=== PATIENT | female | born 1985 | race Caucasian/White ===

== ENCOUNTER 2021-05-01 23:15 | Inpatient (IN) | payer MEDICAID ==
[~2021-05-01] VITALS: Ht 147.3 cm; Wt 69.8 kg
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
[2021-05-02] MEDS ORDERED: magnesium hydroxide 30ml (MOM) UD suspension PO PRN (01:55)
[2021-05-02] MEDS ORDERED: loperamide 2mg capsule PO PRN (01:55)
[2021-05-02] MEDS ORDERED: mag hydrox/Alum hydrox/simeth 30ml oral suspension PO PRN (01:55)
[2021-05-02] MEDS ORDERED: acetaminophen 325mg tablet PO PRN (01:55)
[2021-05-02] MEDS ORDERED: ATOR80TA PO (02:04)
[2021-05-02] MEDS ORDERED: NORE-111 PO (02:04)
[2021-05-02] MEDS ORDERED: INSU100V40 (02:04)
[2021-05-02] MEDS ORDERED: LORA10TA7 PO (02:04)
[2021-05-02] MEDS ORDERED: FERR325T28 PO (02:04)
[2021-05-02] MEDS ORDERED: [UNRECOGNIZED DRUG - CODE] PO (02:04)
[2021-05-02 02:44] VITALS: BP 141/96
[2021-05-02] MEDS ORDERED: LORazepam 1 MG tablet PO ONE (02:50)
[2021-05-02] MEDS ORDERED: [UNRECOGNIZED DRUG - REMARK] SQ PRN (04:10)
[2021-05-02] MEDS: LORazepam 1 MG tablet PO SCH ×3 (07:23→20:08)
[2021-05-02 08:00] VITALS: BP 134/100
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
[2021-05-02] MEDS: loratadine 10mg tablet PO SCH (09:05)
[2021-05-02] MEDS: ferrous sulfate 325mg tablet PO SCH (09:05)
[2021-05-02] MEDS: atorvastatin 20mg tablet PO SCH (09:06)
[2021-05-02] MEDS: ondansetron 4mg rapidly disintigrating tab PO PRN ×2 (09:06→19:08)
[2021-05-02] MEDS: NABUMETONE 750 MG PO SCH ×2 (09:06→20:08)
[2021-05-02 10:11] LABS: BASOPHILS # (AUTO) 0.2 X10'3 (0-0.2); BASOPHILS % (AUTO) 1.4 % (0-1); EOSINOPHILS # (AUTO) 0.1 X10'3 (0-0.9); EOSINOPHILS % (AUTO) 1.2 % (0-6); HEMATOCRIT 43.8 % (35.0-45.0); HEMOGLOBIN 14.7 g/dl (12.0-16.0); LYMPHOCYTES # (AUTO) 2.5 X10'3 (1.1-4.8); LYMPHOCYTES % (AUTO) 24.1 % (21-51); MEAN CORPUSCULAR HEMOGLOBIN 29.4 PG (27.0-31.0); MEAN CORPUSCULAR HGB CONC 33.6 g/dL (33.0-36.5); MEAN CORPUSCULAR VOLUME 87.4 FL (78-98); MONOCYTES % (AUTO) 9.4 % (2-12); NEUTROPHILS # (AUTO) 6.7 X10'3 (1.8-7.7); NEUTROPHILS % (AUTO) 63.9 % (42-75); PLATELET COUNT 353 X10'3 (140-440); RED BLOOD COUNT 5.01 X10'6 (4.20-5.60); RED CELL DISTRIBUTION WIDTH 13.6 % (11.5-14.5); WHITE BLOOD COUNT 10.5 X10'3 (4.5-11.0)
--- NOTE | 2021-05-02 10:30 | NUR ---
Inserted 22 gauge saline lock in right hand.
[2021-05-02 10:31] LABS: ALANINE AMINOTRANSFERASE 44 U/L (12-78); ALBUMIN 3.3 G/DL (3.4-5.0); ANION GAP 15 (8-16); ASPARTATE AMINO TRANSFERASE 26 U/L (10-37); BILIRUBIN,TOTAL 0.5 MG/DL (0.1-1.0); BLOOD UREA NITROGEN 28 MG/DL (7-18); BUN/CREATININE RATIO 27.7 (6.6-38.0); CALCIUM 9.7 MG/DL (8.5-10.1); CHLORIDE 105 MMOL/L (99-107); CREATININE 1.01 MG/DL (0.40-0.90); GLUCOSE 175 MG/DL (70-104); LIPASE 130 U/L (73-393); MAGNESIUM 1.8 MG/DL (1.5-2.4); PHOSPHORUS 3.9 MG/DL (2.3-4.5); POTASSIUM 3.5 MMOL/L (3.5-5.1); SODIUM 142 MMOL/L (135-145); TOTAL CARBON DIOXIDE 21.8 MMOL/L (24-32); TOTAL PROTEIN 6.7 G/DL (6.4-8.2); eGFR 62 ML/MIN
--- NOTE | 2021-05-02 11:35 | NUR ---
Assumed care of patient as Jennifer MCNEILL went home. Pt was transported to CT via w/c accompanied by PCT and security.
[2021-05-02 11:57] VITALS: BP 122/70
--- NOTE | 2021-05-02 12:01 | NUR ---
Pt returned from CT at 1149. Her VS were rechecked: 98.6, 95, 122/70, 14, 98% RA.
[2021-05-02] MEDS ORDERED: iohexol 300mg/ml 100ml inj. ONE ×2 (12:05→12:06)
--- NOTE | 2021-05-02 13:38 | NUR ---
Held 1300 Ativan due to somnolence.
[2021-05-02] MEDS: acetaminophen 325mg tablet PO PRN ×2 (16:12→20:08)
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
--- NOTE | 2021-05-02 17:50 | NUR ---
D/c'd saline lock right hand.
[2021-05-02] MEDS: insulin pump.resvr SQ SCH (20:11)
[2021-05-02 20:17] VITALS: BP 124/82
--- NOTE | 2021-05-03 01:00 | NUR ---
Nursing Progress Note: Legal hold: 5150 for being a danger to herself Report received from nurseEdgardo Dayshift fisher sponge hooking Why are they here: Client texted a friend that she was planning on completing suicide tonight (04/30/21.) The friend called the crisis line. Client stated, "I can't continue with living, I am better off . I looked up which pills to overdose on."Pt also wrote a suicide note. She has a DM I and an insulin pump, Hx of HTN, hyperlipidemia, and cholecystectomy. She is hearing impaired and has hearing aides bilaterally. Assessment; The patient was resting on her bed for the entire evening. She was cooperative with the evening assessment but gave minimal replies 2nd to feeling physically unwell. She is managing her insulin pump. She reported that she was feeling very nauseated and had abd pain 8/10. She was given zofran and tylenol. She did not have any incidents of vomiting. She denies that she feels suicidal and added, "I just haven't felt good" She answered all questions appropriately to what was asked. She appeared tired and unwell. Her HS BS was 156 and stated that she did not require coverage. She continues to be medically worked up for an adrenal mass but that was not discussed with the patient as it was unknown if the MD had reviewed her test results with her yet. She is still undergoing psychiatric evaluation and medication stabilization.
[2021-05-03] MEDS: insulin pump.resvr SQ SCH ×4 (07:00→21:52)
[2021-05-03 07:47] VITALS: BP 113/75
[2021-05-03] MEDS: loratadine 10mg tablet PO SCH (08:23)
[2021-05-03] MEDS: ferrous sulfate 325mg tablet PO SCH (08:24)
[2021-05-03] MEDS: atorvastatin 20mg tablet PO SCH (08:24)
[2021-05-03] MEDS: LORazepam 1 MG tablet PO SCH ×3 (08:24→20:19)
[2021-05-03] MEDS: NABUMETONE 750 MG PO SCH ×2 (08:58→20:19)
[2021-05-03 09:40] LABS: CHOL/HDL RATIO 4.3 (0.00-4.99); CHOLESTEROL 142 MG/DL (0-200); HDL CHOLESTEROL 33 MG/DL (35-60); LDL CHOLESTEROL 84 MG/DL (50-100); TRIGLYCERIDES 110 MG/DL (20-135)
[2021-05-03 10:04] LABS: HEMOGLOBIN A1C 9.7 % (4.5-6.2)
--- NOTE | 2021-05-03 17:45 | NUR ---
Nursing Progress Note: Legal hold: 5150 Client on involuntary status for DTS Report received from nurse Mercedes MCNEILL with use of SBAR Why are they here: Client texted a friend that she was planning on completing suicide tonight (04/30/21.) The friend called the crisis line. Client stated, "I can't continue with living, I am better off . I looked up which pills to overdose on." Pt also wrote a suicide note. She has a DM I and an insulin pump, Hx of HTN, hyperlipidemia, and cholecystectomy. She is hearing impaired and has hearing aides bilaterally. Assessment What has happened this shift: RN received pt. asleep in bed at start of shift. Pt. awoke for breakfast and took all medications. Pt. visibly depressed and socially withdrawn. During 1:1 pt. states, I dont what to , but I dont want to be here. Pt. denies all other psych symptoms. Pt. isolated to her room the entire shift. S/I, H/I: Passive SI. A/VH: Pt denies. Sleep: Pt. slept 8 hrs on NOC shift. Napped intermittently throughout the day. ADL's: Independent. Group attendance: No Were meds taken: Yes Any med S/E: Denies. Mental Status Exam Appearance: Petite, heavy set woman with strawberry blonde hair pulled back in a ponytail dressed in green unit scrubs. Eye contact: WNL Behavior: Socially withdrawn and isolated to her room. Speech: WNL Mood: Depressed, anxious. Affect: Congruent with mood. Thought process: Linear Thought Content: Circumstantial Cognition: A/O X 4 Insight: Fair Judgment: Poor Interventions PRN's used: None Therapeutic interventions: 1:1 assessment, establishment of rapport, therapeutic communication, active listening, ensured contract for safety, medication administration/education/monitoring, monitored glucose levels and assisted with maintenance of insulin pump, provided reassurance that pt is safe here, Q 15 minute safety checks. Restraints/seclusion/emergency medication: None Justification of Continued Inpatient Treatment: Pt is in need of crisis interruption and stabilization in a safe and therapeutic environment to prevent harm to self.
--- NOTE | 2021-05-03 18:39 | NUR ---
Pt. received the following bolus of insulin for meals today. 100g carbs for breakfast resulting in 4.6 units 30 gram carbs at lunch resulting in 2.3 units 31 gram carbs at dinner resulting in 2.3 units.
[2021-05-03 20:29] VITALS: BP 117/71
[2021-05-03] MEDS ORDERED: INSULIN LISPRO 100 UNIT/ML SQ PRN (21:20)
--- NOTE | 2021-05-04 04:46 | NUR ---
Nursing Progress Note: Legal hold: 5150 Client on involuntary status for DTS Report received from nurse Melita MCNEILL with use of SBAR Why are they here: Client texted a friend that she was planning on completing suicide tonight (04/30/21.) The friend called the crisis line. Client stated, "I can't continue with living, I am better off . I looked up which pills to overdose on." Pt also wrote a suicide note. She has a DM I and an insulin pump, Hx of HTN, hyperlipidemia, and cholecystectomy. She is hearing impaired and has hearing aides bilaterally. Assessment What has happened this shift: Patient was received laying in bed at shift change. Patient took medications with out a problem. Patient later came to nurses station stating she needed to have the insulin in her pump replaced. Nurse preformed manual Accu check since pump was unavailable and patient needs 2 manual checks a day to regulate pump. Accu came back 267. Patient refused to dispense insulin because she didn't want to eat her bedtime snack. Nurses were unaware insulin was going to need to be replaced and made arrangements with pharmacy to have insulin brought up. Nurse assisted patient with refilling and replacing pump parts. Afterwards patient took a shower and retuned to room. Patient got up a couple of times during the night complaining of being hot and wanting the temperature brought down. Patient states high temperatures make her nauseous. Patient did not use all of replacement insulin and remainder was place in patient specific. S/I, H/I: Pt denies. A/VH: Pt denies. Sleep: See sleep assessment ADL's: Independent. Group attendance: No Were meds taken: Yes Any med S/E: Sleepiness from routine Ativan. Mental Status Exam Appearance: Petite, heavy set woman with strawberry blonde hair pulled back in a ponytail dressed in green unit scrubs. Eye contact: Fair to good. Behavior: Cooperative, mostly isolative to self and room. Speech: Clear, audible, normal rate & rhythm. Mood: Depressed, anxious. Affect: Congruent. Thought process: Linear Thought Content: Upset with roommate's intrusiveness. Cognition: A/O X 4 Insight: Fair Judgment: Poor Interventions PRN's used: Therapeutic interventions: 1:1 assessment, establishment of rapport, therapeutic communication, active listening, ensured contract for safety, medication administration/education/monitoring, monitored glucose levels and assisted with maintenance of insulin pump, provided reassurance that pt is safe here, Q 15 minute safety checks. Restraints/seclusion/emergency medication: None Justification of Continued Inpatient Treatment: Pt is in need of crisis interruption and stabilization in a safe and therapeutic environment to prevent harm to self.
[2021-05-04] MEDS: insulin pump.resvr SQ SCH (07:00)
[2021-05-04 07:13] VITALS: BP 111/71
[2021-05-04] MEDS: venlafaxine XR 75mg capsule (Q24H) PO SCH (07:50)
[2021-05-04] MEDS: loratadine 10mg tablet PO SCH (07:50)
[2021-05-04] MEDS: atorvastatin 20mg tablet PO SCH (07:50)
[2021-05-04] MEDS: LORazepam 1 MG tablet PO SCH ×3 (07:50→21:14)
[2021-05-04] MEDS: NABUMETONE 750 MG PO SCH ×2 (07:51→21:14)
[2021-05-04 08:07] LABS: ALANINE AMINOTRANSFERASE 41 U/L (12-78); ALBUMIN 3.2 G/DL (3.4-5.0); ALBUMIN/GLOBULIN RATIO 1.1 (1.1-1.5); ALKALINE PHOSPHATASE 80 IU/L (46-116); ANION GAP 13 (8-16); ASPARTATE AMINO TRANSFERASE 27 U/L (10-37); BILIRUBIN,TOTAL 0.5 MG/DL (0.1-1.0); BLOOD UREA NITROGEN 21 MG/DL (7-18); BUN/CREATININE RATIO 20.8 (6.6-38.0); CALCIUM 8.6 MG/DL (8.5-10.1); CHLORIDE 107 MMOL/L (99-107); CREATININE 1.01 MG/DL (0.40-0.90); GLUCOSE 137 MG/DL (70-104); POTASSIUM 3.6 MMOL/L (3.5-5.1); SODIUM 144 MMOL/L (135-145); TOTAL CARBON DIOXIDE 24.5 MMOL/L (24-32); TOTAL PROTEIN 6.1 G/DL (6.4-8.2); eGFR 62 ML/MIN
[2021-05-04] MEDS: ferrous sulfate 325mg tablet PO SCH (08:45)
[2021-05-04] MEDS ORDERED: iohexol 300mg/ml 100ml inj. ONE (10:23)
--- NOTE | 2021-05-04 12:10 | NUR ---
Diabetes consult: pt admit dx SI, major depressive disorder, and PTSD per EMR. Pt is also a poor historian per EMR. Pt w/ hx DM2, A1c 9.7 per EMR. DM education not appropriate due to pt mental status. Will continue to follow. Addendum: 05/04/21 at 1210 by Karla Davenport Zoo Keeper RD Amended: Links added. Addendum: 05/04/21 at [address] I have reviewed and agree with note by Zoo KeeperKennedy Chatterjee RD
--- NOTE | 2021-05-04 18:09 | NUR ---
Nursing Progress Note Legal hold: 5150 Client on involuntary status for DTS Report received from RN with use of SBAR Why are they here: Client texted a friend that she was planning on completing suicide tonight (04/30/21.) The friend called the crisis line. Client stated, "I can't continue with living, I am better off . I looked up which pills to overdose on." Pt wrote a suicide note. She has DM I and an insulin pump, Hx of HTN, hyperlipidemia, and cholecystectomy. She is hearing impaired and has hearing aids bilaterally. Assessment What has happened this shift: Received Pt in her room sleeping w/o distress at the beginning of the shift. Pt woke and was cooperative with vitals and returned to sleep. Pt woke and took AM meds w/o issue and ate breakfast in her room. Pt was awakened and informed of a repeat CAT scan and IV placed by Javier MCNEILL. Pt then proceeded to become tearful and repeatedly saying she wanted to leave and go home. Pt initially refused to go to CT, then agreed later in afternoon. Pt took meds to day w/o issue. She isolated to room for most of afternoon, often with blanket over her head. Pt resistive to insulin pump monitoring. S/I, H/I: Passive SI; denies intent A/VH: Pt denies Sleep: Pt slept late and napped intermittently throughout the day ADL's: Independent. Group attendance: No Were meds taken: Yes Any med S/E: Denies Mental Status Exam Appearance: Casual in green scrubs Eye contact: WNL Behavior: Socially withdrawn and isolated to her room Speech: WNL Mood: Depressed, anxious Affect: Congruent with mood Thought process: Linear Thought Content: Circumstantial Cognition: A/O X 4 Insight: Fair Judgment: Poor Interventions PRN's used: None Therapeutic interventions: 1:1 assessment, establishment of rapport, therapeutic communication, active listening, ensured contract for safety, medication administration/education/monitoring, monitored glucose levels and assisted with maintenance of insulin pump, provided reassurance that pt is safe here, Q 15 minute safety checks. Restraints/seclusion/emergency medication: None Justification of Continued Inpatient Treatment: Pt is in need of crisis interruption and stabilization in a safe and therapeutic environment to prevent harm to self.
[2021-05-04 19:00] VITALS: BP 123/74
[2021-05-04] MEDS: traZODone 50mg tablet PO PRN (21:14)
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
[2021-05-05] MEDS: insulin pump.resvr SQ SCH ×2 (07:00→12:25)
[2021-05-05 07:43] VITALS: BP 138/82
[2021-05-05] MEDS: LORazepam 1 MG tablet PO SCH ×3 (08:14→21:06)
[2021-05-05] MEDS: loratadine 10mg tablet PO SCH (08:15)
[2021-05-05] MEDS: atorvastatin 20mg tablet PO SCH (08:15)
[2021-05-05] MEDS: venlafaxine XR 75mg capsule (Q24H) PO SCH (08:15)
[2021-05-05] MEDS: ferrous sulfate 325mg tablet PO SCH (08:15)
[2021-05-05] MEDS: NABUMETONE 750 MG PO SCH ×2 (08:16→21:08)
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
[2021-05-05 20:00] VITALS: BP 128/83
[2021-05-05] MEDS: traZODone 50mg tablet PO PRN (21:06)
--- NOTE | 2021-05-05 22:44 | NUR ---
Nursing Progress Note Legal hold: 5250 Client on involuntary status for DTS Report received from Melita MCNEILL with use of SBAR Why are they here: Client texted a friend that she was planning on completing suicide tonight (04/30/21.) The friend called the crisis line. Client stated, "I can't continue with living, I am better off . I looked up which pills to overdose on." Pt wrote a suicide note. She has DM I and an insulin pump, Hx of HTN, hyperlipidemia, and cholecystectomy. She is hearing impaired and has hearing aids bilaterally. Assessment What has happened this shift: Pt isolates to her room the entirety of she shift, only coming out to requests things. She is pleasant with staff in conversation, but has a depressed affect. She denies SI/HI/AH/VH at this time. She is medication compliant with HS medications and utilizes PRN trazodone for sleep. Pt states she feels hot at night, temp in room turned down. 2100 blood glucose on her pump was 147 and she did not dose herself with any insulin because she was not going to be eating a snack. S/I, H/I: denies A/VH: Pt denies Sleep: see sleep assessment ADL's: Independent. Group attendance: No Were meds taken: Yes Any med S/E: Denies Mental Status Exam Appearance: green scrubs Eye contact: WNL Behavior: Socially withdrawn and isolated to her room Speech: WNL Mood: Depressed, anxious Affect: depressed Thought process: Linear Thought Content: Circumstantial Cognition: A/O X 4 Insight: poor Judgment: Poor Interventions PRN's used: trazodone Therapeutic interventions: 1:1 assessment, establishment of rapport, therapeutic communication, active listening, ensured contract for safety, medication administration/education/monitoring, monitored glucose levels and assisted with maintenance of insulin pump, provided reassurance that pt is safe here, Q 15 minute safety checks. Restraints/seclusion/emergency medication: None Justification of Continued Inpatient Treatment: Pt is in need of crisis interruption and stabilization in a safe and therapeutic environment to prevent harm to self.
[2021-05-06] MEDS: LORazepam 1 MG tablet PO SCH ×3 (07:32→20:24)
[2021-05-06] MEDS: venlafaxine XR 75mg capsule (Q24H) PO SCH (07:32)
[2021-05-06] MEDS: ferrous sulfate 325mg tablet PO SCH (07:32)
[2021-05-06] MEDS: loratadine 10mg tablet PO SCH (07:32)
[2021-05-06] MEDS: atorvastatin 20mg tablet PO SCH (07:32)
[2021-05-06] MEDS: NABUMETONE 750 MG PO SCH ×2 (07:33→20:23)
--- NOTE | 2021-05-06 07:42 | NUR ---
Initial: Pt admitted w/ major depressive disorder and SI per EMR. Currently on Carb controlled diet w/ avg intake 43% x 10 meals which meets approximately 66% of est energy needs and 99% of est protein needs. Pt can benefit from smoothies BID for additional calories. May also recommend liberalization to Regular diet if PO intake does not improve. LBM 05/01 w/ PRN MoM given 05/05. Will continue to monitor Recs: 1. Continue Carb Controlled diet as tolerated. consider liberalizing to Regular if PO does not improve 2. Smoothies BIDBD 3. Bowel care PRN 4. Weekly wts Addendum: 05/06/21 at [address] Amended: Links added.
[2021-05-06] MEDS: insulin pump.resvr SQ SCH ×4 (07:45→21:00)
[2021-05-06 08:42] VITALS: BP 120/83
--- NOTE | 2021-05-06 17:34 | NUR ---
Nursing Progress Note Legal hold: 5250 Client on involuntary status for DTS Report received from Melita MCNEILL with use of SBAR Why are they here: Client texted a friend that she was planning on completing suicide tonight (04/30/21.) The friend called the crisis line. Client stated, "I can't continue with living, I am better off . I looked up which pills to overdose on." Pt wrote a suicide note. She has DM I and an insulin pump, Hx of HTN, hyperlipidemia, and cholecystectomy. She is hearing impaired and has hearing aids bilaterally. Assessment What has happened this shift: Received patient while she was in her room sleeping. 1:1 Patient Assessment and Interview completed. Returned to the patients room to read her insulin pump blood sugar. Patient was found to be lying in bed and crying profusely. When asked what was wrong, the patient stated That just threw the towels on the bed and walked out of here with her back to me, and I could not hear what she was saying, then never returned to take me to the shower as I had asked. Patient comforted and was informed I would talk to the person who refused to give her a shower. Patient stated Even though she might apologize, I am not going to accept her apology. (0750) Patients fasting blood sugar was 138 on her insulin pump. She ate 38 carbs for breakfast and her insulin given per pump was 2.9 u. (1310) Patients blood sugar was 176 on her insulin pump. She ate 33 carbs for lunch and her insulin given per pump was 2.5u. S/I, H/I: denies A/VH: Pt denies Sleep: 6 hours ADL's: Independent. Group attendance: No Group Attendance Held Today Were meds taken: Yes, without hesitation. Any med S/E: Denies Mental Status Exam Appearance: green scrubs Eye contact: WNL Behavior: Socially withdrawn and isolated to her room Speech: WNL Mood: Depressed, anxious Affect: Depressed Thought process: Linear Thought Content: Circumstantial Cognition: A/O X 4 Insight: poor Judgment: Poor Interventions PRN's used: None Therapeutic interventions: 1:1 assessment, establishment of rapport, therapeutic communication, active listening, ensured contract for safety, medication administration/education/monitoring, monitored glucose levels and assisted with maintenance of insulin pump, provided reassurance that pt is safe here, Q 15 minute safety checks. Restraints/seclusion/emergency medication: None Justification of Continued Inpatient Treatment: Pt is in need of crisis interruption and stabilization in a safe and therapeutic environment to prevent harm to self.
[2021-05-06 19:34] VITALS: BP 130/80
--- NOTE | 2021-05-07 00:10 | NUR ---
Nursing Progress Note Legal hold: 5250 Client on involuntary status for DTS Report received from Ean RN with use of SBAR Why are they here: Client texted a friend that she was planning on completing suicide tonight (04/30/21.) The friend called the crisis line. Client stated, "I can't continue with living, I am better off . I looked up which pills to overdose on." Pt wrote a suicide note. She has DM I and an insulin pump, Hx of HTN, hyperlipidemia, and cholecystectomy. She is hearing impaired and has hearing aids bilaterally. Assessment What has happened this shift: Pt in room talking to nurse in room at shift change. Pt was upset and explained to this nurse that a tech from day shift had shut the door in her face because she had asked for a shower. Pt was consoled and was told that we would do our best to get her showered after the techs had time. The Pt requested to have her Trazodone with her night time meds. Pt was granted permission to use her personal phone to obtain messages from house mate to settle a personal problem she was experiencing while being here. Pt asked to have evening meds held until after shower. Pt took shower and then wanted to change out insulin pump needle and insulin. This nurse obtained the pts blue bag from her locker and observed the pt change the needle to right abdomen, replace unit battery, fill insulin chamber with 200units of insulin. The pt turned on the pump and showed this nurse how it updated itself after the switch. Pt then took evening meds w/o complications. Pt ate 100% Dinner. blood sugar 154 @ 1750. 47 carbs total, pt administered 3.6 units insulin with programmed basal rate of 0.7. The pt did not bolus a evening dose of insulin at 2100 as she did not eat a snack. S/I, H/I: denies A/VH: Pt denies Sleep: See sleep hours ADL's: Independent. Group attendance: No Group in the evenings Were meds taken: Yes Any med S/E: Denies Mental Status Exam Appearance: green scrubs Eye contact: WNL Behavior: Socially withdrawn and isolated to her room Speech: WNL Mood: Depressed, anxious Affect: Depressed Thought process: Linear Thought Content: Circumstantial Cognition: A/O X 4 Insight: poor Judgment: Poor Interventions PRN's used: None Therapeutic interventions: 1:1 assessment, establishment of rapport, therapeutic communication, active listening, ensured contract for safety, medication administration/education/monitoring, monitored glucose levels and assisted with maintenance of insulin pump, provided reassurance that pt is safe here, Q 15 minute safety checks. Restraints/seclusion/emergency medication: None Justification of Continued Inpatient Treatment: Pt is in need of crisis interruption and stabilization in a safe and therapeutic environment to prevent harm to self.
[2021-05-07] MEDS: traZODone 50mg tablet PO PRN ×2 (02:23→20:55)
[2021-05-07] MEDS: insulin pump.resvr SQ SCH ×4 (07:00→21:22)
[2021-05-07] MEDS: venlafaxine XR 75mg capsule (Q24H) PO SCH (07:58)
[2021-05-07] MEDS: loratadine 10mg tablet PO SCH (07:58)
[2021-05-07] MEDS: ferrous sulfate 325mg tablet PO SCH (07:58)
[2021-05-07] MEDS: LORazepam 1 MG tablet PO SCH ×3 (07:58→20:55)
[2021-05-07] MEDS: atorvastatin 20mg tablet PO SCH (08:01)
[2021-05-07] MEDS: NABUMETONE 750 MG PO SCH ×2 (08:04→20:55)
[2021-05-07 08:38] VITALS: BP 118/76
--- NOTE | 2021-05-07 14:34 | NUR ---
[facility] Contact Yuan with [facility] called for an update. She reported she will coordinate transport upon discharge. Phone# [phone] ELOINA Figueroa
--- NOTE | 2021-05-07 16:12 | NUR ---
5250 upheld for DTS
--- NOTE | 2021-05-07 17:34 | NUR ---
Nursing Progress Note Legal hold: 5250 Client on involuntary status for DTS Report received from OSITO Magaña with use of SBAR Why are they here: Client texted a friend that she was planning on completing suicide tonight (04/30/21.) The friend called the crisis line. Client stated, "I can't continue with living, I am better off . I looked up which pills to overdose on." Pt wrote a suicide note. She has DM I and an insulin pump, Hx of HTN, hyperlipidemia, and cholecystectomy. She is hearing impaired and has hearing aids bilaterally. Assessment What has happened this shift: Received patient while she was resting in bed. (0750) Patient awake at this time. (0810) Blood Glucose checked via Insulin Pump which was 139. Patient ate 30 carbs and Insulin administered was 2.3 units. Patient resting in bed most of the am. Patient reported that she did not find out if her roommate at her house had moved out yet, so she will probably need to stay a little longer. Patient slept most of the morning. Patient woke up at 1200 and was reading a book in bed. (1250) Patients blood sugar was 161. Patient ate 100% of lunch meal & 43 carbs. Patient entered her carbs into her insulin pump and it gave patient 3.3 units of insulin. Patient rested in bed this afternoon napping and reading a book. S/I, H/I: denies A/VH: Pt denies Sleep: 6.75 hours of sleep ADL's: Independent. Group attendance: No Group Meeting held today. Were meds taken: Yes, without hesitation. Any med S/E: Denies Mental Status Exam Appearance: Middle aged female patient wearing green scrubs Eye contact: Good. Behavior: Isolated to room, speaks with roommate often. Speech: WNL Mood: Depressed Affect: Depressed Thought process: Linear Thought Content: Meeting Needs. Cognition: A/O X 4 Insight: poor Judgment: Poor Interventions PRN's used: None Therapeutic interventions: 1:1 assessment, establishment of rapport, therapeutic communication, active listening, ensured contract for safety, medication administration/education/monitoring, monitored glucose levels and assisted with maintenance of insulin pump, provided reassurance that pt is safe here, Q 15 minute safety checks. Restraints/seclusion/emergency medication: None Justification of Continued Inpatient Treatment: Pt is in need of crisis interruption and stabilization in a safe and therapeutic environment to prevent harm to self. S/I, H/I: denies A/VH: Pt denies Sleep: See sleep hours ADL's: Independent. Group attendance: No Group in the evenings Were meds taken: Yes, without hesitation. Any med S/E: Denies Mental Status Exam Appearance: green scrubs Eye contact: WNL Behavior: Socially withdrawn and isolated to her room Speech: WNL Mood: Depressed, anxious Affect: Depressed Thought process: Linear Thought Content: Circumstantial Cognition: A/O X 4 Insight: poor Judgment: Poor Interventions PRN's used: None Therapeutic interventions: 1:1 assessment, establishment of rapport, therapeutic communication, active listening, ensured contract for safety, medication administration/education/monitoring, monitored glucose levels and assisted with maintenance of insulin pump, provided reassurance that pt is safe here, Q 15 minute safety checks. Restraints/seclusion/emergency medication: None Justification of Continued Inpatient Treatment: Pt is in need of crisis interruption and stabilization in a safe and therapeutic environment to prevent harm to self.
[2021-05-07 19:07] VITALS: BP 126/80
--- NOTE | 2021-05-07 23:57 | NUR ---
Nursing Progress Note Legal hold: 5250 Client on involuntary status for DTS Report received from OSITO Mckoy with use of SBAR Why are they here: Client texted a friend that she was planning on completing suicide tonight (04/30/21.) The friend called the crisis line. Client stated, "I can't continue with living, I am better off . I looked up which pills to overdose on." Pt wrote a suicide note. She has DM I and an insulin pump, Hx of HTN, hyperlipidemia, and cholecystectomy. She is hearing impaired and has hearing aids bilaterally. Assessment What has happened this shift:Pt in bed talking with room mate at shift change. Pt blood sugar was 200 at 1750 after pts dinner the pt entered in 51 carbs from dinner which gave her 3.9units of insulin. Pt had a shower and refused a snack. pt took evening meds after shower.Pt 2100 BS-200. Pt asked for a Trazodone to go with evening meds. pt sat up and read a book for an hour and went to sleep shortly after. S/I, H/I: denies A/VH: Pt denies Sleep: See sleep hours ADL's: Independent. Group attendance: No Group in the evenings Were meds taken: Yes Any med S/E: Denies Mental Status Exam Appearance: Middle aged female patient wearing green scrubs Eye contact: Good. Behavior: Isolated to room, speaks with roommate often. Speech: WNL Mood: Depressed Affect: Depressed Thought process: Linear Thought Content: Meeting Needs. Cognition: A/O X 4 Insight: poor Judgment: Poor Interventions PRN's used: None Therapeutic interventions: 1:1 assessment, establishment of rapport, therapeutic communication, active listening, ensured contract for safety, medication administration/education/monitoring, monitored glucose levels and assisted with maintenance of insulin pump, provided reassurance that pt is safe here, Q 15 minute safety checks. Restraints/seclusion/emergency medication: None Justification of Continued Inpatient Treatment: Pt is in need of crisis interruption and stabilization in a safe and therapeutic environment to prevent harm to self.
[2021-05-08] MEDS: insulin pump.resvr SQ SCH ×4 (07:00→21:00)
[2021-05-08 07:54] VITALS: BP 138/89
[2021-05-08] MEDS: atorvastatin 20mg tablet PO SCH (08:04)
[2021-05-08] MEDS: ferrous sulfate 325mg tablet PO SCH (08:04)
[2021-05-08] MEDS: loratadine 10mg tablet PO SCH (08:04)
[2021-05-08] MEDS: LORazepam 1 MG tablet PO SCH ×3 (08:04→20:25)
[2021-05-08] MEDS: venlafaxine XR 75mg capsule (Q24H) PO SCH (08:05)
[2021-05-08] MEDS: NABUMETONE 750 MG PO SCH ×2 (08:06→20:25)
--- NOTE | 2021-05-08 17:45 | NUR ---
Nursing Progress Note Legal hold: 5250 Client on involuntary status for DTS Report received from OSITO Long with use of SBAR Why are they here: Client texted a friend that she was planning on completing suicide tonight (04/30/21.) The friend called the crisis line. Client stated, "I can't continue with living, I am better off . I looked up which pills to overdose on." Pt wrote a suicide note. She has DM I and an insulin pump, Hx of HTN, hyperlipidemia, and cholecystectomy. She is hearing impaired and has hearing aids bilaterally. Assessment What has happened this shift: Received patient while she was sitting up in bed reading a book. Checked patients blood sugar off the insulin pump and it was 146. Patient ate 100% of her breakfast. Insulin reading when patient input blood sugar of 146 & 59 carbs. Patient pleasant and linear at all times. Patient rested in bed most of the morning, then ate lunch. (1250) Blood Sugar was 179 per insulin pump. Patient ate 100% of cc diet = 55 carbs which was 4.2 units of insulin. Patient took and afternoon nap and rested this afternoon. S/I, H/I: denies A/VH: Pt denies Sleep: 6.25 hours ADL's: Independent. Group attendance: Patient did not attend the morning Group Meeting. Were meds taken: Yes, without hesitation. Any med S/E: Denies Mental Status Exam Appearance: Middle aged female patient wearing green scrubs Eye contact: Good. Behavior: Isolated to room, Pleasant & Cooperative. Speech: Clear, Normal Rate. Mood: Depressed Affect: Depressed Thought process: Linear Thought Content: Resolving Roommate Move Out. Cognition: A/O X 4 Insight: poor Judgment: Poor Interventions PRN's used: None Therapeutic interventions: 1:1 assessment, establishment of rapport, therapeutic communication, active listening, ensured contract for safety, medication administration/education/monitoring, monitored glucose levels and assisted with maintenance of insulin pump, provided reassurance that pt is safe here, Q 15 minute safety checks. Restraints/seclusion/emergency medication: None Justification of Continued Inpatient Treatment: Pt is in need of crisis interruption and stabilization in a safe and therapeutic environment to prevent harm to self.
[2021-05-08 19:13] VITALS: BP 116/66
[2021-05-08] MEDS: traZODone 50mg tablet PO PRN (20:25)
--- NOTE | 2021-05-09 00:22 | NUR ---
Nursing Progress Note Legal hold: 5250 Client on involuntary status for DTS Report received from OSITO Reynoso with use of SBAR Why are they here: Client texted a friend that she was planning on completing suicide tonight (04/30/21.) The friend called the crisis line. Client stated, "I can't continue with living, I am better off . I looked up which pills to overdose on." Pt wrote a suicide note. She has DM I and an insulin pump, Hx of HTN, hyperlipidemia, and cholecystectomy. She is hearing impaired and has hearing aids bilaterally. Assessment What has happened this shift: Pt lying in bed a shift change. Pt was beginning to eat diiner. The dayshift nurse reported to me that the pts BS was 207 before eating dinner.Pt ate 50% of dinner which came to 27 carbs, which gave the pt 2 units of insulin from her insulin pump. The pt wanted a Trazodone with evening meds. pt took evening meds at [facility]. The pt denies any thoughts of self harm to herself or others. The pt did not eat a snack 2100 insulin at basal rate of 0.7, BS-192. Pt woke up at 2300 stating that her insulin sensor needed to be changed and recalibrated. The pts blue bag was brought to her and the pt changed out the sensor independently. The pt stated that recalibrating would take 2 hours. S/I, H/I: denies A/VH: Pt denies Sleep: See sleep hours ADL's: Independent. Group attendance:No group in the evenings Were meds taken: Yes Any med S/E: Denies Mental Status Exam Appearance: Middle aged female patient wearing green scrubs Eye contact: Good. Behavior: Isolated to room, Pleasant & Cooperative. Speech: Clear, Normal Rate. Mood: Depressed Affect: Depressed Thought process: Linear Thought Content: tired, insulin Cognition: A/O X 4 Insight: poor Judgment: Poor Interventions PRN's used: Trazodone 100mg Therapeutic interventions: 1:1 assessment, establishment of rapport, therapeutic communication, active listening, ensured contract for safety, medication administration/education/monitoring, monitored glucose levels and assisted with maintenance of insulin pump, provided reassurance that pt is safe here, Q 15 minute safety checks. Restraints/seclusion/emergency medication: None Justification of Continued Inpatient Treatment: Pt is in need of crisis interruption and stabilization in a safe and therapeutic environment to prevent harm to self. Addendum: 05/09/21 at 0319 by Luli Barton RN Pt recalibrated insulin pump 0300 with glucose monitor. BS 191. Pt states that she will need to recalibrate the insulin pump a couple times.
[2021-05-09] MEDS: traZODone 50mg tablet PO PRN (03:17)
[2021-05-09] MEDS: insulin pump.resvr SQ SCH ×4 (07:00→21:31)
[2021-05-09] MEDS: LORazepam 1 MG tablet PO SCH ×3 (07:57→20:10)
[2021-05-09] MEDS: ferrous sulfate 325mg tablet PO SCH (07:57)
[2021-05-09] MEDS: venlafaxine XR 75mg capsule (Q24H) PO SCH (07:57)
[2021-05-09] MEDS: loratadine 10mg tablet PO SCH (07:57)
[2021-05-09] MEDS: atorvastatin 20mg tablet PO SCH (07:58)
[2021-05-09] MEDS: NABUMETONE 750 MG PO SCH ×2 (07:59→20:10)
[2021-05-09 08:22] VITALS: BP 125/83
[2021-05-09] MEDS ORDERED: DEXTROSE 15 GM of carb/4 tabs (each vial/BOTTLE has 4 tablets) PO PRN ×2 (08:25)
[2021-05-09] MEDS ORDERED: glucagon, human recombinant 1mg kit SUBCUT PRN (08:25)
--- NOTE | 2021-05-09 16:22 | NUR ---
Nursing Progress Note Legal hold: 5250 Client on involuntary status for DTS Report received from OSITO Long with use of SBAR Why are they here: Client texted a friend that she was planning on completing suicide tonight (04/30/21.) The friend called the crisis line. Client stated, "I can't continue with living, I am better off . I looked up which pills to overdose on." Pt wrote a suicide note. She has DM I and an insulin pump, Hx of HTN, hyperlipidemia, and cholecystectomy. She is hearing impaired and has hearing aids bilaterally. Assessment What has happened this shift: Patient was asleep at change of shift but up soon after. Patient was sitting in bed and took her medication. RN explained that she is going to need to eat her breakfast in the Community Room. Patient stated "I just won't eat." She refused breakfast and snack. RN took her tray into her room but patient refused. Patient has not eaten anything as of this writing. Patient has slept most of the day. RN awakens patient to encourage eating and gets a reading of patient's BG. Patient hardly answers questions and was upset when awoken AEB "Just let me sleep!" RN is concerned about patient not eating and BG dropping. 0700 BG 149 1200 BG 114 1300 BG 118 1500 BG 127 1615 BG 121 S/I, H/I: denies A/VH: Pt denies Sleep: Most of the day ADL's: Independent. Group attendance: No Were meds taken: Yes Any med S/E: Denies Mental Status Exam Appearance: Middle aged female patient wearing green scrubs Eye contact: Poor Behavior: Isolated to room, uncooperative. Speech: Clear, Normal Rate. Mood: Depressed Affect: Depressed Thought process: Linear Thought Content: Patient won't speak to RN "Let me sleep!". Cognition: A/O X 4 Insight: poor Judgment: Poor Interventions PRN's used: None Therapeutic interventions: 1:1 assessment, establishment of rapport, therapeutic communication, active listening, ensured contract for safety, medication administration/education/monitoring, monitored glucose levels and assisted with maintenance of insulin pump, provided reassurance that pt is safe here, Q 15 minute safety checks. Restraints/seclusion/emergency medication: None Justification of Continued Inpatient Treatment: Pt is in need of crisis interruption and stabilization in a safe and therapeutic environment to prevent harm to self.
[2021-05-09 20:05] VITALS: BP 108/67
--- NOTE | 2021-05-10 02:29 | NUR ---
Nursing Progress Note Legal hold: 5250 Client on involuntary status for DTS Report received from OSITO Reynoso with use of SBAR Why are they here: Assessment What has happened this shift: Patient was received laying i bed at beginning of shift. Patient was very upset, yelling about the morning nurse and her roommate. Patient states that the morning nurse spilled water on her hearing aids and then took them so she cant hear anyone. Later was determined patient had supplies all along. Patient was very upset and argumentative. for the rest of the shift. Patient did not participate in snack time but her blood sugar was still 198. Patient isolated in her room all shift. S/I, H/I: denies A/VH: Pt denies Sleep: See sleep assessment ADL's: Independent. Group attendance: No Were meds taken: Yes Any med S/E: Denies Mental Status Exam Appearance: Middle aged female patient wearing green scrubs Eye contact: Poor Behavior: Isolated to room Speech: Clear, Normal Rate. Mood: Depressed Affect: Depressed Thought process: Linear Thought Content: Cognition: A/O X 4 Insight: poor Judgment: Poor Interventions PRN's used: None Therapeutic interventions: 1:1 assessment, establishment of rapport, therapeutic communication, active listening, ensured contract for safety, medication administration/education/monitoring, monitored glucose levels and assisted with maintenance of insulin pump, provided reassurance that pt is safe here, Q 15 minute safety checks. Restraints/seclusion/emergency medication: None Justification of Continued Inpatient Treatment: Pt is in need of crisis interruption and stabilization in a safe and therapeutic environment to prevent harm to self.
[2021-05-10] MEDS: insulin pump.resvr SQ SCH ×4 (07:00→21:00)
[2021-05-10 07:27] VITALS: BP 107/63
[2021-05-10] MEDS: ferrous sulfate 325mg tablet PO SCH (08:24)
[2021-05-10] MEDS: LORazepam 1 MG tablet PO SCH ×3 (08:24→20:13)
[2021-05-10] MEDS: loratadine 10mg tablet PO SCH (08:24)
[2021-05-10] MEDS: atorvastatin 20mg tablet PO SCH (08:24)
[2021-05-10] MEDS: venlafaxine XR 75mg capsule (Q24H) PO SCH (08:24)
[2021-05-10] MEDS: NABUMETONE 750 MG PO SCH ×2 (08:26→20:13)
--- NOTE | 2021-05-10 09:22 | NUR ---
CM Presenting Issues: Pt's distraught, makes accusations that her RN from yesterday poured water on her hearing aid and now pt can't hear. Pt with diabetes and Insulin dependent, has been refusing to eat. Per chart review, assigned RN from 05/09 attempted to coax pt to come to the community room to take her meal w/other patients, pt refused, RN brought meal tray to pt and pt still refused to eat. Chart further indicates that during this incident the Attending PA was present and noted that the incident which pt reports to clinician did not occur. Interventions: Clinician met w/pt attempted to engage pt in processing & reprocessing recent events, pt was distraught and kept crying, stating that she wants to go home today. Clinician attempted to engage pt in dcp activities, informing her that it's difficult for the doctors to discharge her if she continues to refuse to eat and refusing to engage w/care team when they attempt to implement treatment plan activities. Pt was not willing to engage in discussion of ways to facilitate discharge, pt was perseverating on accusations that a RN treated her poorly yesterday and wanting to file a formal complaint. Clinician took pt's complaint and submitted to [facility] Director, pt was informed but continues to cry. MSE TP- Linear; perseveration TC- Denies SI/HI/AH/VH/TH; cognitive distortion Mood- distraught Affect-Tearful bxs-uncooperative Insight-guarded Judgement-guarded Clinician consulted w/attending PA as dcp may need to be postpone as pt is distraught and refusing to participate in care plan. Clinician noted possibility of personality traits that may be impeding pt's response to care. Plan: Re-assess pt for d/c. Izzy Escobedo LCSW Addendum: 05/10/21 at 1027 by Izzy Escobedo Amended: Links added.
--- NOTE | 2021-05-10 11:14 | NUR ---
Reassessment: Pt currently on carb control diet and eating 50% x 9 meals, w/ the refusal of three last meals and recently refusing snacks, though pt is receiving smoothies BIDBD. LBM 05/07, bowel care available PRN. No nutrition intervention implemented at this time. Will continue to monitor. Recs: 1. Continue Carb Controlled diet as tolerated.consider liberalizing to Regular if PO does not improve 2. Smoothies BIDBD 3. Bowel care PRN 4. Weekly wts Addendum: 05/10/21 at [address] Amended: Links added. Addendum: 05/10/21 at [address] I have reviewed assessment by intern
--- NOTE | 2021-05-10 18:07 | NUR ---
Nursing Progress Note Legal hold: 5250 Client on involuntary status for DTS Report received from OSITO Long with use of SBAR Why are they here: Client texted a friend that she was planning on completing suicide tonight (04/30/21.) The friend called the crisis line. Client stated, "I can't continue with living, I am better off . I looked up which pills to overdose on." Pt wrote a suicide note. She has DM I and an insulin pump, Hx of HTN, hyperlipidemia, and cholecystectomy. She is hearing impaired and has hearing aids bilaterally. Assessment What has happened this shift: RN received pt. asleep at change of shift. Pt. awoke and took medications but refused breakfast. Pt. is tearful but will not say why she is upset. Pt. fell back asleep. At lunch time pt. ate 24 Grams of carbs from her meal and took 1.8 units of bolus insulin. Pt. denies all psych symptoms. Pt. isolated to her room most of the day. At dinner time pt. ate 35 grams of carbs and received a bolus of 2.6 units of insulin. 0700 BG 173 1200 BG 127 1700 BG 187 Total insulin received in day shift: 4.4 units. S/I, H/I: denies A/VH: Pt denies Sleep: Pt. slept 7 hrs on NOC shift and napped intermittently throughout the day. ADL's: Independent. Group attendance: No Were meds taken: Yes Any med S/E: Denies Mental Status Exam Appearance: Middle aged female patient wearing green scrubs Eye contact: Poor Behavior: Isolated to room, irritable, depressed. Speech: Poverty of speech. Mood: Depressed, anxious Affect: Congruent with mood. Thought process: Linear. Thought Content: Wants to be left alone. Cognition: A/O X 4 Insight: poor Judgment: Poor Interventions PRN's used: None Therapeutic interventions: 1:1 assessment, establishment of rapport, therapeutic communication, active listening, ensured contract for safety, medication administration/education/monitoring, monitored glucose levels and assisted with maintenance of insulin pump, provided reassurance that pt is safe here, Q 15 minute safety checks. Restraints/seclusion/emergency medication: None Justification of Continued Inpatient Treatment: Pt is in need of crisis interruption and stabilization in a safe and therapeutic environment to prevent harm to self.
[2021-05-10 19:44] VITALS: BP 113/60
[2021-05-10] MEDS: traZODone 50mg tablet PO PRN (22:38)
--- NOTE | 2021-05-11 01:13 | NUR ---
Nursing Progress Note Legal hold: [id number] Client on involuntary status for DTS Report received from OSITO Hua with use of SBAR Why are they here: Assessment What has happened this shift: Patient was found sleeping in bed at beginning of shift. Pts blood sugar pumped was checked at beginning of shift 207. Pt has note written on edge of the bed making everyone write there questions down. Pt is continuing with the statement that she cant find her hearing aids. Pt is defensive and irritated. Pt took all her scheduled medications including prn trazodone which the patient requested. Pts blood sugar was checked again after med pass. Blood sugar dropped to 168. Patient refused snack and returned to bed. S/I, H/I: denies A/VH: Pt denies Sleep: See sleep assessment ADL's: Independent. Group attendance: No Were meds taken: Yes Any med S/E: Denies Mental Status Exam Appearance: Middle aged female patient wearing green scrubs Eye contact: Poor Behavior: Isolated to room Speech: Clear, Normal Rate. Mood: Depressed, irritated Affect: Depressed Thought process: Linear Thought Content: Cognition: A/O X 4 Insight: poor Judgment: Poor Interventions PRN's used: Trazodone Therapeutic interventions: 1:1 assessment, establishment of rapport, therapeutic communication, active listening, ensured contract for safety, medication administration/education/monitoring, monitored glucose levels and assisted with maintenance of insulin pump, provided reassurance that pt is safe here, Q 15 minute safety checks. Restraints/seclusion/emergency medication: None Justification of Continued Inpatient Treatment: Pt is in need of crisis interruption and stabilization in a safe and therapeutic environment to prevent harm to self.
[2021-05-11] MEDS: insulin pump.resvr SQ SCH (07:00)
[2021-05-11 07:17] VITALS: BP 112/67
[2021-05-11] MEDS: LORazepam 1 MG tablet PO SCH (07:53)
[2021-05-11] MEDS: venlafaxine XR 75mg capsule (Q24H) PO SCH (07:53)
[2021-05-11] MEDS: atorvastatin 20mg tablet PO SCH (07:53)
[2021-05-11] MEDS: loratadine 10mg tablet PO SCH (07:54)
[2021-05-11] MEDS: ferrous sulfate 325mg tablet PO SCH (07:54)
[2021-05-11] MEDS: NABUMETONE 750 MG PO SCH (08:00)
[2021-05-11] MEDS ORDERED: TRAZ-251 PO (10:43)
[2021-05-11] MEDS ORDERED: ATOR80TA PO (10:43)
[2021-05-11] MEDS ORDERED: [UNRECOGNIZED DRUG - CODE] PO (10:43)
[2021-05-11] MEDS ORDERED: LORA10TA7 PO (10:43)
[2021-05-11] MEDS ORDERED: FERR325T28 PO (10:43)
[2021-05-11] MEDS ORDERED: VENL75CA61 PO (10:43)
--- NOTE | 2021-05-11 11:46 | NUR ---
Discharge Note: Patient is agreeable to discharge home to self-care. Follow up plan reviewed with the patient who verbalizes understanding. Prescriptions sent to patients pharmacy of choice. Discharged at 11:05 with all of her belongings and personal medications. No s/sx of acute distress. Escorted off the unit by staff and is picked up by a [facility] motorcoach driver. Discharged with the following instructions: Follow-Up: Patient has been scheduled/referred to the following providers for post-hospital discharge and aftercare treatment. Psychiatrist: Dr. Gonzalez at [facility] will see you on Monday 05/15 at 8:30AM. Your intake appointment with [facility] is scheduled for 05/24 at 10:15 AM. The above appointments are scheduled at: [facility] [address] [place], [place] Pharmacy: You can brass pickler your medications at [facility] located at [address] [place] [address] Primary Care Provider: You are encouraged to contact your primary care provider and request for a post-hospital appointment. Therapist: You are encouraged to request for referrals to a psychotherapist at [facility] Discharge Address: Home [address] [place] [address] Transportation: [facility] will brass pickler at 11:00AM Friday Patient given community crisis services information and National suicide hotline handout. Please call [phone] for your second outpatient smoking cessation appointment. Resources for education regarding mental illness: [address] [address] For urgent mental health crisis needs please contact Mobile Crisis Outreach Team Friday through Friday 8:30a to 5:00pm. Mobile Crisis Outreach Team [address] [place] [id number]
== END 2021-05-11 11:05 | disposition home or self-care (01) | DRG 751 ==
LOC: ADULT MH 23:15
PROVIDERS: ADMIT Psychiatry & Neurology Psychiatry; ATTEND Psychiatry & Neurology Psychiatry
PROC: BW211ZZ Computerized Tomography (CT Scan) of Abdomen and Pelvis using Low Osmolar Contrast (ICD-10-PCS; principal; 2021-05-02)
PROC: BW211ZZ Computerized Tomography (CT Scan) of Abdomen and Pelvis using Low Osmolar Contrast (ICD-10-PCS; 2021-05-04)
DX: F33.2 Major depressive disorder, recurrent severe without psychotic features (principal); E11.9 Type 2 diabetes mellitus without complications; R45.851 Suicidal ideations; E78.5 Hyperlipidemia, unspecified; D35.00 Benign neoplasm of unspecified adrenal gland; F12.90 Cannabis use, unspecified, uncomplicated; G89.29 Other chronic pain; M54.9 Dorsalgia, unspecified; I10 Essential (primary) hypertension; R00.0 Tachycardia, unspecified; R10.9 Unspecified abdominal pain; Z96.41 Presence of insulin pump (external) (internal); F43.10 Post-traumatic stress disorder, unspecified; Z79.4 Long term (current) use of insulin; Z79.899 Other long term (current) drug therapy; Z97.4 Presence of external hearing-aid; Z90.49 Acquired absence of other specified parts of digestive tract; Z56.0 Unemployment, unspecified; Z88.1 Allergy status to other antibiotic agents; Z91.013 Allergy to seafood
CPT/HCPCS: 36415; 74177; 74178; 80053; 80061; 82948; 83036; 83690; 83735; 84100; 84145; 85025; 87081; Q9967